=== PATIENT | female | born 1950 | race Caucasian/White ===

== ENCOUNTER → 2018-05-14 | Outpatient (CLI) | payer MEDICARE | LOC: M WUC 16:32 | DX: S13.140D Subluxation of C3/C4 cervical vertebrae, subsequent encounter (principal); S13.150D Subluxation of C4/C5 cervical vertebrae, subsequent encounter; M25.78 Osteophyte, vertebrae; M54.2 Cervicalgia; R07.9 Chest pain, unspecified; K58.2 Mixed irritable bowel syndrome; K21.9 Gastro-esophageal reflux disease without esophagitis; S09.90XD Unspecified injury of head, subsequent encounter; W22.09XD Striking against other stationary object, subsequent encounter | CPT/HCPCS: 72052; G0463 ==

== ENCOUNTER 2018-05-27 08:00 | Outpatient (RCR) | payer MEDICARE | END 2018-06-16 | LOC: M OT 08:00 → M PT 06-06 14:41 → M OT 06-11 13:33 → M PT 06-14 13:54 → M OT 05-30 13:35 | DX: Z51.89 Encounter for other specified aftercare (principal); M54.81 Occipital neuralgia | CPT/HCPCS: 97110 ==

== ENCOUNTER 2018-06-17 12:49 | Outpatient (RCR) | payer MEDICARE | END 2018-07-17 | LOC: M PT 12:49 → M OT 06-19 12:49 → M PT 12:49 → M OT 06-19 12:49 | DX: M54.81 Occipital neuralgia (principal) | CPT/HCPCS: 97110 ==

== ENCOUNTER → 2020-04-27 | Outpatient (REF) | payer MEDICARE ==
[~2020-04-27] MED LIST: BUDE180INH; CLAR10CA3 PO; IBUP-1022 PO; LORA0.5T5; PRED1SUS2; PREV1CAP; PROV108A; TUMS500C PO
[2020-05-30 15:47] LABS: BASO # 0.1 10^3/uL (0.0-0.2); BASO % 0.7 % (0.0-1.0); EOS # 0.2 10^3/uL (0.0-0.5); EOS % 2.6 % (0.0-3.0); HEMATOCRIT 41.3 % (36.0-47.0); HEMOGLOBIN 13.2 g/dl (12.0-15.5); MEAN CORPUSCULAR HEMOGLOBIN 31.3 pg (27.0-33.0); MEAN CORPUSCULAR VOLUME 97.9 fl (80.0-96.0); MONO # 0.8 10^3/uL (0.0-0.8); MONO % 9.4 % (0.0-5.0); NEUTROPHILS # 5.5 10^3/uL (1.5-8.5); NEUTROPHILS % 63.9 % (36.0-66.0); PLATELET COUNT, AUTOMATED 213 10^3/uL (150-450); RED BLOOD COUNT 4.22 10^6/uL (4.00-5.40); WHITE BLOOD COUNT 8.6 10^3/uL (4.0-10.0)
[2020-05-31 06:30] LABS: APPEARANCE, URINE CLEAR (CLEAR); BACTERIA, URINE AUTO NEGATIVE (NEGATIVE); BILIRUBIN, URINE AUTO NEGATIVE (NEGATIVE); BLOOD, URINE BLOOD 1+ (NEGATIVE); COLOR, URINE YELLOW (YELLOW); GLUCOSE, URINE (UA) AUTO NEGATIVE (NEGATIVE); KETONE, URINE AUTO NEGATIVE (NEGATIVE); LEUKOCYTE ESTERASE, URINE AUTO NEGATIVE (NEGATIVE); NITRITE, URINE AUTO NEGATIVE (NEGATIVE); PROTEIN, URINE AUTO NEGATIVE (NEGATIVE); RBC, URINE AUTO 0 /HPF (0-3); SPECIFIC GRAVITY URINE AUTO 1.011 (1.002-1.035); SQUAMOUS EPITHELIAL CELL UR AU 0 /HPF (0-6); UROBILINOGEN, URINE AUTO 0.2 mg/dL (0.0-2.0); WBC, URINE AUTO 5 /HPF (0-3)
[2020-06-11 17:19] LABS: ALBUMIN 3.3 GM/DL (3.2-5.2); ALT/SGPT 22 U/L (12-78); BILIRUBIN,TOTAL 0.5 MG/DL (0.2-1.0); BLOOD UREA NITROGEN 14 MG/DL (7-18); CALCIUM LEVEL 8.9 MG/DL (8.8-10.2); CARBON DIOXIDE LEVEL 28 MEQ/L (21-32); CHLORIDE LEVEL 109 MEQ/L (98-107); CHOLESTEROL LEVEL 167 MG/DL (<200); CHOLESTEROL RISK RATIO 2.982 (<5); CREATININE FOR GFR 0.77 MG/DL (0.55-1.30); GLOMERULAR FILTRATION RATE > 60.0 (>39); GLUCOSE, FASTING 87 MG/DL (70-100); HDL CHOLESTEROL 56 MG/DL (>40); LDL CHOLESTEROL 96 MG/DL (<100); NON-HDL-C 111 MG/DL; POTASSIUM SERUM 4.2 MEQ/L (3.5-5.1); SODIUM LEVEL 142 MEQ/L (136-145); THYROXINE (T4) 8.8 UG/DL (4.5-12.0); TOTAL PROTEIN 6.6 GM/DL (6.4-8.2); TRIGLYCERIDES LEVEL 74 MG/DL (<150)
== END ==
LOC: M LABDRAWC 09:22
PROVIDERS: ATTEND Family Medicine
DX: Z00.00 Encounter for general adult medical examination without abnormal findings (principal); E78.5 Hyperlipidemia, unspecified; Z51.81 Encounter for therapeutic drug level monitoring; I10 Essential (primary) hypertension; Z79.899 Other long term (current) drug therapy

== ENCOUNTER → 2021-05-25 | Outpatient (CLI) | payer MEDICARE ==
--- NOTE | 2021-05-25 09:10 | REP ---
INDICATION: Z80.41 FAM HX OVARIAN CA. COMPARISON: No comparison images are available. Report of a prior study from an outside facility dated January 16, 2019 reports no abnormality post hysterectomy. TECHNIQUE: Transabdominal and transvaginal scanning were performed. FINDINGS: Uterus is surgically absent. Neither ovary could be identified transabdominally or transvaginally. No adnexal mass, free fluid, cyst or adenopathy is seen. IMPRESSION: Normal pelvic sonography. Uterus is surgically absent. Neither ovary is directly visible. No adnexal mass, cyst or free fluid. <Electronically signed by Lex Alvarez > 05/25/21 [id number]
== END ==
LOC: M WHC 07:39
PROVIDERS: ATTEND Nurse Practitioner Adult Health
DX: Z90.79 Acquired absence of other genital organ(s) (principal); Z80.41 Family history of malignant neoplasm of ovary

== ENCOUNTER → 2021-06-23 | Outpatient (CLI) | payer MEDICARE ==
--- NOTE | 2021-06-23 10:02 | REPMRS ---
Patient History The patient states she has not had a clinical breast exam in over a year. Patient is postmenopausal and has history of basal cell skin cancer at age 70. Family history of breast cancer at age 45 in paternal aunt, endometrial cancer at age 62 in maternal aunt, prostate cancer at age 65 in father, prostate cancer at age 49 in brother, ovarian cancer at age 65 in paternal aunt. Patient states no breast complaints today. Patient has signed MRS History Sheet. Digital Woman Screen Mammo: June 23, 2021 - Exam #: [id number] Bilateral CC and MLO view(s) were taken. Technologist: Cony Howe, Technologist Prior study comparison: May 20, 2020, bilateral digital mammo screening bilat, performed at [facility]. January 16, 2019, bilateral digital mammo screening bilat, performed at [facility]. January 14, 2018, bilateral digital mammo screening bilat, performed at [facility]. FINDINGS: There are scattered fibroglandular densities. The Volpara volumetric breast density category is:B. In the left medial mid breast, there is an equivocal area of architectural distortion or spiculation. This is only seen on the 3D tomography images. This merits further evaluation. There has been no other change in the appearance of the mammogram from the prior studies. There is a mild amount of scattered fibroglandular density which is fairly symmetric. There is no other interval development of dominant mass, architectural distortion, or grouped microcalcification suggestive of malignancy. 3-D tomosynthesis shows no additional findings. Assessment: BI-RADS/ACR category 0 mammogram, Incomplete: Need additional imaging evaluation and/or prior mammograms for comparison. Recommendation Ultrasound and special view mammogram of the left breast. This patient's [facility] Lifetime Breast Cancer Risk is estimated at 6.9 %. This mammogram was interpreted with the aid of an FDA-approved computer-aided dectection system. Electronically Signed By: Lex Alvarez MD 06/23/21 [id number]
--- NOTE | 2021-06-29 14:02 | DEXAMM ---
INDICATION: OSTEOPENIA UNSPECIFIED. COMPARISON: 01/14/2018. TECHNIQUE: Bone density was measured using dual-energy x-ray absorptiometry (DEXA). FINDINGS: AP SPINE L1-L4 BMD 0.978 g/cm2 Young Adult T-Score -1.7 Age Matched Z-Score 0.0. LT FEMUR, TOTAL BMD 0.758 g/cm2 Young Adult T-Score -2.0 Age Matched Z-Score -0.3. LT NECK BMD 0.729 g/cm2 Young Adult T-Score -2.2 Age Matched Z-Score -0.4. RT FEMUR, TOTAL BMD 0.784 g/cm2 Young Adult T-Score -1.8 Age Matched Z-Score -0.1. RT NECK BMD 0.698 g/cm2 Young Adult T-Score -2.4 Age Matched Z-Score -0.6. IMPRESSION: There is low bone density of the spine. There is low bone density of the left hip. There is low bone density of the right hip. The density of the spine has increased 6.1% since the initial exam on 01/14/2018. FOLLOW-UP: Recommendation for the next bone density exam: 2 years. <Electronically signed by Pavan Leigh > 06/29/21 [id number]
== END ==
LOC: M WHC 08:45
PROVIDERS: ATTEND Nurse Practitioner Adult Health
DX: R92.2 Inconclusive mammogram (principal); M85.80 Other specified disorders of bone density and structure, unspecified site; Z78.0 Asymptomatic menopausal state; Z80.3 Family history of malignant neoplasm of breast

== ENCOUNTER 2022-02-24 15:02 | Emergency (ER) | payer MEDICARE ==
[~2022-02-24] VITALS: Ht 160 cm; Wt 102.7 kg
[2022-02-24 19:07] VITALS: BP 148/92
[2022-02-24 19:18] LABS: BASO # 0.1 10^3/uL (0.0-0.2); BASO % 0.5 % (0.0-1.0); EOS # 0.1 10^3/uL (0.0-0.5); HEMATOCRIT 45.7 % (36.0-47.0); HEMOGLOBIN 14.9 g/dl (12.0-15.5); LYMPH # 1.9 10^3/uL (1.5-5.0); LYMPH % 18.8 % (24.0-44.0); MEAN CORPUSCULAR HEMOGLOBIN 31.7 pg (27.0-33.0); MEAN CORPUSCULAR HGB CONC 32.6 g/dl (32.0-36.5); MEAN CORPUSCULAR VOLUME 97.2 fl (80.0-96.0); MONO # 0.7 10^3/uL (0.0-0.8); MONO % 6.9 % (2.0-8.0); NEUTROPHILS # 7.3 10^3/uL (1.5-8.5); NEUTROPHILS % 72.3 % (36.0-66.0); PLATELET COUNT, AUTOMATED 256 10^3/uL (150-450); WHITE BLOOD COUNT 10.1 10^3/uL (4.0-10.0)
[2022-02-24 19:56] LABS: BLOOD UREA NITROGEN 14 MG/DL (7-18); CALCIUM LEVEL 9.6 MG/DL (8.8-10.2); CARBON DIOXIDE LEVEL 27 MEQ/L (21-32); CHLORIDE LEVEL 111 MEQ/L (98-107); CREATININE FOR GFR 0.78 MG/DL (0.55-1.30); FREE T4 0.97 NG/DL (0.76-1.46); GLOMERULAR FILTRATION RATE > 60.0 (>39); GLUCOSE, FASTING 96 MG/DL (70-100); POTASSIUM SERUM 4.5 MEQ/L (3.5-5.1); SODIUM LEVEL 145 MEQ/L (136-145)
== END 2022-02-24 20:50 | disposition home or self-care (01) ==
LOC: M ED 15:02
DX: Z04.89 Encounter for examination and observation for other specified reasons (principal); J45.909 Unspecified asthma, uncomplicated; K21.9 Gastro-esophageal reflux disease without esophagitis; H18.513 Endothelial corneal dystrophy, bilateral; K58.9 Irritable bowel syndrome, unspecified; M19.90 Unspecified osteoarthritis, unspecified site; M41.9 Scoliosis, unspecified; Z88.2 Allergy status to sulfonamides; Z88.0 Allergy status to penicillin; Z88.5 Allergy status to narcotic agent; Z88.8 Allergy status to other drugs, medicaments and biological substances; Z79.899 Other long term (current) drug therapy

== ENCOUNTER → 2023-03-15 | Outpatient (CLI) | payer MEDICARE ==
[~2023-03-15] MED LIST changes: +ALBU6.7H6; -PROV108A
== END ==
LOC: M PLAIMG 16:49
PROVIDERS: ATTEND Physician Assistant
DX: M79.89 Other specified soft tissue disorders (principal); M79.671 Pain in right foot

== ENCOUNTER → 2023-03-16 | Outpatient (CLI) | payer MEDICARE ==
[2023-03-16 11:01] LABS: BASO # 0.1 10^3/uL (0.0-0.2); BASO % 0.5 % (0.0-1.0); EOS # 0.1 10^3/uL (0.0-0.5); EOS % 1.4 % (0.0-3.0); HEMATOCRIT 47.9 % (36.0-47.0); LYMPH # 1.5 10^3/uL (1.5-5.0); LYMPH % 14.5 % (24.0-44.0); MEAN CORPUSCULAR HEMOGLOBIN 31.6 pg (27.0-33.0); MEAN CORPUSCULAR HGB CONC 31.3 g/dl (32.0-36.5); MEAN CORPUSCULAR VOLUME 101.1 fl (80.0-96.0); MONO # 0.8 10^3/uL (0.0-0.8); MONO % 7.6 % (2.0-8.0); NEUTROPHILS # 7.8 10^3/uL (1.5-8.5); NEUTROPHILS % 75.5 % (36.0-66.0); PLATELET COUNT, AUTOMATED 221 10^3/uL (150-450); RED BLOOD COUNT 4.74 10^6/uL (4.00-5.40); WHITE BLOOD COUNT 10.3 10^3/uL (4.0-10.0)
[2023-03-16 11:17] LABS: ALBUMIN 3.3 G/DL (3.2-5.2); ALKALINE PHOSPHATASE 77 U/L (46-116); ALT/SGPT 19 U/L (7.0-40); AST/SGOT 10 U/L (<34); BILIRUBIN,TOTAL 0.5 MG/DL (0.3-1.2); BLOOD UREA NITROGEN 13 MG/DL (9-23); CALCIUM LEVEL 9.7 MG/DL (8.3-10.6); CARBON DIOXIDE LEVEL 29 MMOL/L (20-31); CHLORIDE LEVEL 108 MMOL/L (98-107); CREATININE FOR GFR 0.75 MG/DL (0.55-1.30); GLOMERULAR FILTRATION RATE > 60.0 (>39); GLUCOSE, FASTING 85 MG/DL (74-106); POTASSIUM SERUM 4.2 MMOL/L (3.5-5.1); SODIUM LEVEL 144 MMOL/L (136-145); TOTAL PROTEIN 6.7 G/DL (5.7-8.2)
[2023-03-16 11:36] LABS: INR 0.96
[2023-03-16 11:37] LABS: PARTIAL THROMBOPLASTIN TIME 26.1 SECONDS (24.8-34.2)
== END ==
LOC: M RAD 08:38
PROVIDERS: ATTEND Physician Assistant
DX: I82.411 Acute embolism and thrombosis of right femoral vein (principal); M79.89 Other specified soft tissue disorders

== ENCOUNTER → 2023-03-28 | Outpatient (CLI) | payer MEDICARE ==
[2023-03-28 15:54] LABS: INR 1.06
[2023-03-29 10:11] LABS: DRVV SCREEN 57.3 SEC
[2023-03-29 10:30] LABS: PTT LUPUS TYPE ANTICOAG SCREEN 1.5 (0-1.2)
[2023-03-29 10:53] LABS: DRVV CONFIRM 46.4 SEC; LUPUS CONFIRM RATIO 1.2
[2023-03-29 11:22] LABS: NORMALIZED RATIO 1.25 (0.00-1.20)
[2023-03-31 02:07] LABS: HEXAGONAL PHASE PHOSPHOLIPID 3 sec (0-11)
== END ==
LOC: M PLALAB 13:21
PROVIDERS: ATTEND Nurse Practitioner Adult Health
DX: I82.411 Acute embolism and thrombosis of right femoral vein (principal)